=== PATIENT | female | born 1955 | race Caucasian/White ===

== ENCOUNTER 2021-10-26 13:56 | Outpatient (CLI) | payer OTHER, SELFPAY ==
--- NOTE | 2021-10-26 14:00 | CRLHL7_ITS ---
For Patients: As a result of the Century Cures Act, medical imaging exams and procedure reports are released immediately into your electronic medical record. You may view this report before your referring provider. If you have questions, please contact your health care provider. INDICATION: BILATERAL LEG SWELLING, LT<RT COMPARISON: None available TECHNIQUE: A duplex venous ultrasound exam was performed of both lower extremities using allen scale imaging, color Doppler and spectral Doppler analysis. Pre- and post compression images were obtained per site specific protocol. The size of the superficial veins were recorded, along with reflux times if applicable. FINDINGS: In the right lower extremity deep venous system, there is normal compressibility, color Doppler venous blood flow and augmentation within the common femoral vein, superficial femoral vein, popliteal vein, and posterior tibial veins. The greater and lesser saphenous veins of the right lower extremity are also patent and compressible with intact color Doppler venous blood flow. The greater saphenous vein measures approximately 1 cm at the saphenofemoral junction where it is competent. The greater saphenous vein is incompetent in the midthigh. The lesser saphenous vein is incompetent in the mid calf. The saphenopopliteal junction is not identified. In the left lower extremity deep venous system, there is normal compressibility, color Doppler venous blood flow and augmentation within the common femoral vein, superficial femoral vein, popliteal vein, and posterior tibial veins. The left popliteal vein is incompetent. The greater and lesser saphenous veins of the right lower extremity are also patent and compressible with intact color Doppler venous blood flow. The greater saphenous vein measures approximately 1 cm at the saphenofemoral junction where it is competent. The greater saphenous vein is incompetent in the mid and proximal thigh and proximal calf. The lesser saphenous vein is competent throughout. The saphenopopliteal junction is not identified. IMPRESSION: 1. No deep or superficial venous thrombosis. 2. Venous insufficiency of the right greater saphenous vein in the midthigh. 3. Venous insufficiency of the left greater saphenous vein within the proximal and mid thigh and proximal calf. 4. Venous insufficiency of the right mid calf lesser saphenous vein. 5. Venous insufficiency of the left popliteal vein. Dictated by Thierry Hernandez MD @ 10/30/2021 9:04:09 AM Dictated by Thierry Hernandez MD @ 10/30/2021 9:04:58 AM (Electronically Signed)
== END 2021-10-26 13:57 | disposition home or self-care (01) ==
LOC: US 13:59
PROVIDERS: PCP Family Medicine; Visit Provider Family Medicine
DX: I83.893 Varicose veins of bilateral lower extremities with other complications (principal); I87.2 Venous insufficiency (chronic) (peripheral)
CPT/HCPCS: 93970

== ENCOUNTER 2021-11-20 10:43 | Outpatient (CLI) | payer OTHER, SELFPAY ==
--- NOTE | 2021-11-20 10:45 | CRLHL7_ITS ---
For Patients: As a result of the Century Cures Act, medical imaging exams and procedure reports are released immediately into your electronic medical record. You may view this report before your referring provider. If you have questions, please contact your health care provider. BILATERAL MAMMOGRAM WITH COMPUTER-AIDED DETECTION AND TOMOSYNTHESIS TECHNIQUE: CC and MLO views were obtained. These mammographic images have been obtained using full-field digital technique. These mammographic images were interpreted with the benefit of computer-aided detection. Breast Tomosynthesis was used in this interpretation. COMPARISON FILM: 10/16/20, 10/05/19, 04/14/18. FINDINGS: There are scattered areas of fibroglandular density IMPRESSION: There is no radiographic evidence for malignancy. ASSESSMENT: BI-RADS Category 1: Negative RECOMMENDATION: Routine screening mammogram in 1 year. A lay language report of this examination will be provided to the patient. Ramos Cool M.D. Diagnostic/Musculoskeletal Radiologist [email or web address] / be/Dictated by: Ramos Cool MD @ 11/20/2021 11:51:00 AM (Electronically Signed)
== END 2021-11-20 10:44 | disposition home or self-care (01) ==
LOC: MAMMO 10:44
PROVIDERS: PCP Family Medicine; Visit Provider Family Medicine
DX: Z12.31 Encounter for screening mammogram for malignant neoplasm of breast (principal)
CPT/HCPCS: 77063; 77067

== ENCOUNTER 2022-05-27 07:29 | Outpatient (CLI) | payer OTHER, SELFPAY ==
[2022-05-27 08:35] LABS: Chloride* 99 mmol/L (96-114); Potassium* 4.1 mmol/L (3.6-5.1); Sodium* 137 mmol/L (135-149)
[2022-05-27 08:38] LABS: Alanine Aminotransferase* 39 U/L (4-35); Alkaline Phosphatase* 114 U/L (40-150); Aspartate Amino Transferase* 42 U/L (12-35); Bilirubin Total* 0.6 mg/dL (0.1-1.5); Blood Urea Nitrogen* 12 mg/dL (7-30); Carbon Dioxide* 34 mmol/L (20-32); Creatinine* 0.7 mg/dL (0.5-1.5); Estimated Glomerular Filt Rate 96 ml/min; Glucose* 116 mg/dL (60-115); Total Protein* 6.9 g/dL (6.0-8.3)
[2022-05-27 10:08] LABS: Vitamin B12* > 1000 pg/mL (243-894)
[2022-05-29 10:10] LABS: Vitamin D, 1,25-Dihydroxy 44.8 pg/mL (19.9-79.3)
== END 2022-05-27 07:30 | disposition home or self-care (01) ==
LOC: NFLDREF 07:29
PROVIDERS: PCP Family Medicine; Visit Provider Family Medicine
DX: E53.8 Deficiency of other specified B group vitamins (principal); I10 Essential (primary) hypertension; E55.9 Vitamin D deficiency, unspecified; R73.03 Prediabetes; N95.2 Postmenopausal atrophic vaginitis
CPT/HCPCS: 80053; 82607; 82652

== ENCOUNTER 2022-11-21 08:29 | Outpatient (CLI) | payer OTHER, SELFPAY ==
--- NOTE | 2022-11-21 09:15 | CRLHL7_ITS ---
For Patients: As a result of the Cures Act, medical imaging exams and procedure reports are released immediately into your electronic medical record. You may view this report before your referring provider. If you have questions, please contact your health care provider. BILATERAL SCREENING MAMMOGRAM WITH COMPUTER-AIDED DETECTION AND TOMOSYNTHESIS TECHNIQUE: CC and MLO views were obtained. These mammographic images have been obtained using full-field digital technique. These mammographic images were interpreted with the benefit of computer-aided detection. Breast Tomosynthesis was used in this interpretation. COMPARISON FILM: 11/20/21, 10/16/20, 10/05/19. FINDINGS: There are scattered areas of fibroglandular density IMPRESSION: There is no radiographic evidence for malignancy. ASSESSMENT: BI-RADS Category 1: Negative RECOMMENDATION: Routine screening mammogram in 1 year. A lay language report of this examination will be provided to the patient. Thierry Hernandez M.D. Diagnostic Radiologist [email or web address] Transcribed: 1:47 [email or web address] segundo/Dictated by: Thierry Hernandez MD @ 11/21/2022 12:14:00 PM (Electronically Signed)
== END 2022-11-21 08:30 | disposition home or self-care (01) ==
LOC: MAMMO 08:30
PROVIDERS: PCP Family Medicine; Visit Provider Family Medicine
DX: Z12.31 Encounter for screening mammogram for malignant neoplasm of breast (principal)
CPT/HCPCS: 77063; 77067

== ENCOUNTER 2022-12-10 07:31 | Outpatient (CLI) | payer OTHER, SELFPAY | END 2022-12-10 07:32 | disposition home or self-care (01) | LOC: NFLDREF 12-12 09:22 | PROVIDERS: PCP Family Medicine; Referring Provider Family Medicine; Visit Provider Family Medicine | DX: E66.01 Morbid (severe) obesity due to excess calories (principal); E78.5 Hyperlipidemia, unspecified; I10 Essential (primary) hypertension; R73.03 Prediabetes; Z68.41 Body mass index [BMI] 40.0-44.9, adult | CPT/HCPCS: 80053; 80061 ==

== ENCOUNTER 2023-12-31 09:25 | Outpatient (CLI) | payer MEDICARE, BC, SELFPAY | END 2023-12-31 09:26 | disposition home or self-care (01) | LOC: NFLDREF 01-04 12:33 | PROVIDERS: PCP Family Medicine; Referring Provider Family Medicine; Visit Provider Family Medicine | DX: E53.8 Deficiency of other specified B group vitamins (principal); G62.9 Polyneuropathy, unspecified; R73.03 Prediabetes; I10 Essential (primary) hypertension; E78.5 Hyperlipidemia, unspecified; Z80.41 Family history of malignant neoplasm of ovary | CPT/HCPCS: 80053; 80061; 82306; 82607; 86304 ==

== ENCOUNTER 2024-01-07 13:55 | Outpatient (CLI) | payer MEDICARE, BC, SELFPAY ==
--- NOTE | 2024-01-07 14:00 | CRLHL7_ITS ---
For Patients: As a result of the Century Cures Act, medical imaging exams and procedure reports are released immediately into your electronic medical record. You may view this report before your referring provider. If you have questions, please contact your health care provider. BILATERAL SCREENING MAMMOGRAM WITH COMPUTER-AIDED DETECTION AND TOMOSYNTHESIS TECHNIQUE: CC and MLO views were obtained. These mammographic images have been obtained using full-field digital technique. These mammographic images were interpreted with the benefit of computer-aided detection. Breast Tomosynthesis was used in this interpretation. COMPARISON FILM: 11/21/22, 11/20/21, 10/16/21. FINDINGS: The breasts are almost entirely fatty. IMPRESSION: There is no radiographic evidence for malignancy. ASSESSMENT: BI-RADS Category 2: Benign RECOMMENDATION: Routine screening mammogram in 1 year. A lay language report of this examination will be provided to the patient. Thierry Hernandez M.D. Diagnostic Radiologist [email or web address] SP/Dictated by: Thierry Hernandez MD @ 01/08/2024 8:46:00 AM (Electronically Signed)
== END 2024-01-07 13:56 | disposition home or self-care (01) ==
LOC: MAMMO 13:56
PROVIDERS: PCP Family Medicine; Visit Provider Physician Assistant
DX: Z12.31 Encounter for screening mammogram for malignant neoplasm of breast (principal)
CPT/HCPCS: 77063; 77067

== ENCOUNTER 2024-05-03 08:01 | Outpatient (CLI) | payer MEDICARE, BC, SELFPAY | END 2024-05-03 08:02 | disposition home or self-care (01) | LOC: NFLDREF 05-04 02:27 | PROVIDERS: PCP Family Medicine; Referring Provider Family Medicine; Visit Provider Family Medicine | DX: I10 Essential (primary) hypertension (principal); E78.5 Hyperlipidemia, unspecified; E55.9 Vitamin D deficiency, unspecified; R73.03 Prediabetes; E66.01 Morbid (severe) obesity due to excess calories; Z68.41 Body mass index [BMI] 40.0-44.9, adult | CPT/HCPCS: 80053; 80061; 82306 ==

== ENCOUNTER 2025-01-04 08:05 | Outpatient (CLI) | payer MEDICARE, BC, SELFPAY | END 2025-01-04 08:06 | disposition home or self-care (01) | LOC: NFLDREF 01-07 17:52 | PROVIDERS: PCP Family Medicine; Referring Provider Family Medicine; Visit Provider Family Medicine | DX: I10 Essential (primary) hypertension (principal); E78.5 Hyperlipidemia, unspecified | CPT/HCPCS: 80053; 80061 ==

== ENCOUNTER 2025-01-07 15:14 | Outpatient (CLI) | payer MEDICARE, BC, SELFPAY ==
--- NOTE | 2025-01-07 15:20 | CRLHL7_ITS ---
For Patients: As a result of the Century Cures Act, medical imaging exams and procedure reports are released immediately into your electronic medical record. You may view this report before your referring provider. If you have questions, please contact your health care provider. INDICATION: BILATERAL SCREENING MAMMOGRAM, ASYMPTOMATIC 69 Y/O FEMALE COMPARISON: 01/07/2024, 11/21/2022, 11/20/2021 TECHNIQUE: Digital mammogram in CC and MLO projections including computer-aided detection (CAD) and tomosynthesis. BREAST COMPOSITION: The breasts are almost entirely fatty. FINDINGS: No suspicious findings. ASSESSMENT: BI-RADS 2 Benign RECOMMENDATION: Annual screening mammogram. A lay language report of this examination will be provided to the patient. Dictated by: Thierry Hernandez MD @ 01/10/2025 08:54:05 (Electronically Signed)
== END 2025-01-07 15:15 | disposition home or self-care (01) ==
LOC: MAMMO 15:15
PROVIDERS: PCP Family Medicine; Visit Provider Family Medicine
DX: Z12.31 Encounter for screening mammogram for malignant neoplasm of breast (principal)
CPT/HCPCS: 77063; 77067

== ENCOUNTER 2025-01-18 13:27 | Outpatient (CLI) | payer MEDICARE, BC, SELFPAY ==
--- NOTE | 2025-01-18 13:45 | CRLHL7_ITS ---
For Patients: As a result of the Century Cures Act, medical imaging exams and procedure reports are released immediately into your electronic medical record. You may view this report before your referring provider. If you have questions, please contact your health care provider. INDICATION: Radiculopathy. TECHNIQUE : Lumbar spine MRI without contrast. COMPARISON: Lumbar spine radiographs from 01/06/2025. FINDINGS : Five lumbar type vertebral bodies, with the last fully formed disc space designated as L5-S1. Normal lumbar lordosis. Mild levoconvex lumbar curvature. No recent compression fracture or marrow replacing process. Lower cord/conus signal is normal. The conus terminates at a normal location. No intradural lesion. No extraspinal soft tissue abnormalities. Discs/Endplates: Minimal to mild disc height loss and disc desiccation at L1-2 through L4-5. Discs are within normal limits. Findings at individual levels as follows: T11-12: Trace anterolisthesis. Mild disc bulge. Bilateral low-grade facet arthrosis. The spinal canal or neural foraminal stenosis. T12-L1: Mild disc bulge. Bilateral facet arthrosis. No spinal canal or neural foraminal stenosis. L1-2: Moderate disc osteophyte complex. Superimposed shallow left intraforaminal protrusion component. Bilateral low-grade facet arthrosis. No substantial spinal canal or neural foraminal stenosis. L2-3: Mild disc bulge. Bilateral facet arthrosis. Mild to moderate spinal canal stenosis and mild bilateral neural foraminal stenosis. L3-4: Mild disc bulge. Bilateral facet arthrosis. Mild bilateral neural foraminal stenosis. No spinal canal stenosis. L4-5: 6 millimeters grade 1 anterolisthesis. Superior disc unroofing and superimposed moderate disc osteophyte complex. Advanced bilateral facet arthrosis with effusion on the left. Advanced spinal canal stenosis with buckling of the cauda equina. Mild bilateral foraminal stenosis. L5-S1: Mild disc bulge. Bilateral facet arthrosis. No spinal canal or neural foraminal stenosis. Imaged SI joints: Minimal arthrosis. Imaged sacrum: Within normal limits. IMPRESSION: 1. No acute fracture or marrow replacing process. 2. At L4-5, advanced spinal canal stenosis secondary to grade 1 degenerative anterolisthesis/high-grade facet arthrosis/ligamentum flavum thickening. 3. Additional multilevel spondylotic changes as detailed at individual levels above. Dictated by Gabriel Benitez MD @ 01/19/2025 3:46:28 PM (Electronically Signed)
== END 2025-01-18 13:28 | disposition home or self-care (01) ==
PROVIDERS: PCP Family Medicine; Visit Provider Family Medicine
DX: M54.10 Radiculopathy, site unspecified (principal); M48.061 Spinal stenosis, lumbar region without neurogenic claudication
CPT/HCPCS: 72148

== ENCOUNTER 2025-02-16 08:06 | Outpatient (CLI) | payer MEDICARE, BC, SELFPAY | END 2025-02-16 08:07 | disposition home or self-care (01) | PROVIDERS: PCP Family Medicine; Visit Provider Nurse Anesthetist, Certified Registered | DX: M54.16 Radiculopathy, lumbar region (principal) | CPT/HCPCS: 64483; J0665; J1100; Q9966 ==

== ENCOUNTER 2025-03-23 08:54 | Outpatient (CLI) | payer MEDICARE, BC, SELFPAY | END 2025-03-23 08:55 | disposition home or self-care (01) | LOC: INJ CL 08:54 | PROVIDERS: PCP Family Medicine; Visit Provider Nurse Anesthetist, Certified Registered | DX: M54.16 Radiculopathy, lumbar region (principal) | CPT/HCPCS: 64483; J0665; Q9966 ==